=== PATIENT | female | born 1995 ===

== ENCOUNTER 2023-07-02 04:42 | Emergency (ER) | payer BC ==
[~2023-07-02] VITALS: Ht 154.9 cm; Wt 56.7 kg
[2023-07-02 06:18] LABS: Source, Urine Clean Catch
[2023-07-02 06:24] LABS: Appearance, Urine Clear (Clear); Bilirubin, Urine Neg (Neg); Blood, Urine 5+ (Neg); Color, Urine Yellow (P-Yellow); Glucose Qualitative, Urine Neg (Neg); Ketones, Urine Neg (Neg); Leukocyte Esterase, Urine Neg (Neg); Nitrite, Urine Neg (Neg); Protein, Urine Neg (Neg); Urobilinogen, Urine NORM (Normal); pH, Urine 6.5 (5.0-8.0)
[2023-07-02 06:34] LABS: Albumin, Blood 3.9 g/dL (3.4-5.0); Albumin/Globulin Ratio 1.1 (0.8-1.8); Bilirubin, Total 0.3 mg/dL (0.1-1.0); Bun/Creatinine Ratio 22.9 (12.0-20.0); Calcium, Blood 9.1 mg/dL (8.5-10.1); Creatinine, Blood 0.65 mg/dL (0.40-1.00); Globulin, Blood 3.7 g/dL (2.2-4.0); Total Protein, Blood 7.6 g/dL (6.4-8.2)
[2023-07-02 07:16] LABS: White Blood Cells, Urine 0-2 /hpf (0-5)
[2023-07-02 07:17] LABS: Bacteria Few /hpf; Squamous Epithelial Cells Few /hpf (Few)
[2023-07-02] MEDS ORDERED: Ibuprofen600 MG PO (07:27)
[2023-07-02] MEDS ORDERED: ACET500 PO (07:27)
[2023-07-02 08:16] VITALS: BP 115/78
== END 2023-07-02 08:14 | disposition home or self-care (01) ==
LOC: ER 04:42
PROVIDERS: Emergency Medicine
DX: N83.201 Unspecified ovarian cyst, right side (principal)
CPT/HCPCS: 76856; 80053; 81001; 84703; 96374; 99284-25; A9270; J1885